=== PATIENT | female | born 1975 | race Caucasian/White ===

== ENCOUNTER 2018-07-03 13:30 | Emergency (ER) | payer BC ==
[2018-07-03 15:11] LABS: Urine Blood NEGATIVE (NEG); Urine Glucose NEGATIVE (NEG); Urine Protein NEGATIVE (NEG); Urine Specific Gravity 1.025 (1.005-1.030)
[2018-07-03 15:40] LABS: Absolute Lymphocytes (CBC) 1.2 K/uL (0.7-4.9); Absolute Monocytes 0.7 K/uL (0.1-1.3); Absolute Neutrophil 13.5 K/uL (1.8-8.0); Basophils % 0.4 % (0-1.3); Eosinophils % 0.4 % (0-4.4); Hematocrit 48.2 % (36.0-45.0); Lymphocytes % 7.9 % (15.3-44.8); MPV 9.3 fL (7.6-11.3); Monocytes % 4.8 % (3.3-12.3); RBC Red Blood Cell Count 5.63 M/uL (3.86-4.86)
[2018-07-03] MEDS ORDERED: NA CHLORIDE 0.9% 1,000 ML ONE (15:43)
[2018-07-03 15:44] LABS: Protime INR 1.03
[2018-07-03 15:55] LABS: Albumin 3.8 g/dL (3.4-5.0); Bilirubin Direct 0.2 mg/dL (0-0.2); Bilirubin Total 0.5 mg/dL (0.2-1.0); Protein, Total 8.2 g/dL (6.4-8.2)
[2018-07-03 16:10] LABS: Blood Morphology Comment NOT SEEN (NOT SEEN); Platelet Estimate ADEQ; Urine White Blood Cell Casts OK
--- NOTE | 2018-07-03 16:27 | RAD REPORT ---
EXAM DESCRIPTION: CT - Abdomen Pelvis W Contrast - 07/03/2018 4:14 pm CLINICAL HISTORY: Abdominal pain, blood in stool COMPARISON: None. TECHNIQUE: Biphasic, helical CT imaging of the abdomen and pelvis was performed following 100 ml non -ionic IV contrast. No oral contrast given. All CT scans are performed using dose optimization technique as appropriate and may include automated exposure control or mA/KV adjustment according to patient size. FINDINGS: No suspicious findings in the lung bases. The liver, spleen, and pancreas show no suspicious findings. Gallbladder and biliary tree are also wi thout suspicious finding. Gallbladder is contracted. Symmetric renal function is seen with no hydronephrosis or suspicious renal mass. No pyelonephritis o r acute parenchymal process. No bladder abnormalities. No adrenal abnormalities. Uterus is absent. Ov martha are unremarkable. No gastric dilatation or wall thickening. No dilated small bowel loop. No appendicitis findings. A di screte colon mass is not identifiable. There is a minimal amount of fluid adjacent to the ascending c olon. No focal colon process at this site. Colon is mostly decompressed from hepatic flexure to dista l rectum. No adjacent inflammatory stranding. No free air or pneumatosis. Trace amount of fluid seen in the right side of the pelvis. No mass or bulky lymphadenopathy. Very minimal umbilical hernia. N o acute component. No suspicious bony findings. IMPRESSION: No rectal wall thickening or mass identifiable. No finding to explain rectal blood. Patient has a minimal amount of free fluid adjacent to the ascending colon without an abnormality eze ntifiable on CT imaging. No other significant finding.
--- NOTE | 2018-07-03 17:33 | EDPHYS ---
Physician Documentation [facility] Name: Kimberlyn Pizarro Age: 43 yrs Sex: Female : 1975 Arrival Date: 07/03/2018 Time: 13:33 Bed 20 Private MD: Marck Gonzalez ED Physician Yong Fregoso HPI: 07/03 15:30 This 43 yrs old Female presents to ER via Ambulatory with complaints of pm1 Migraine, Bloody Stools. 15:30 The patient presents to the emergency department with rectal bleeding, a small amount, pm1 bright red blood with bowel movement, in a single episode. Onset: The symptoms/episode began/occurred today. Abdominal pain: none is appreciated. Modifying factors: The symptoms are alleviated by nothing, the symptoms are aggravated by nothing. Associated signs and symptoms: Pertinent positives: diarrhea, Pertinent negatives: chest pain, constipation, fever, shortness of breath, vomiting. Severity of symptoms: Pain is currently a 0 / 10. The patient has not experienced similar symptoms in the past. Treated for pneumonia by PCP on 06/20. Patient with migraine headache yesterday that resolved with prescription Relpax. 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 - Social history:: Smoking status: Patient/guardian denies using tobacco. - Ebola Screening: : Patient negative for fever greater than or equal to 101.5 degrees Fahrenheit, and additional compatible Ebola Virus Disease symptoms Patient denies exposure to infectious person Patient denies travel to an Ebola-affected area in the 21 days before illness onset No symptoms or risks identified at this time. ROS: 15:30 Constitutional: Negative for fever, chills, and weight loss, Eyes: Negative for injury, pm1 pain, redness, and discharge, ENT: Negative for injury, pain, and discharge, Neck: Negative for injury, pain, and swelling, Cardiovascular: Negative for chest pain, palpitations, and edema, Respiratory: Negative for shortness of breath, cough, wheezing, and pleuritic chest pain. 15:30 Back: Negative for injury and pain, : Negative for injury, bleeding, discharge, and swelling, MS/Extremity: Negative for injury and deformity, Skin: Negative for injury, rash, and discoloration, Neuro: Negative for headache, weakness, numbness, tingling, and seizure. 15:30 Abdomen/GI: Positive for diarrhea, rectal bleeding, Negative for abdominal pain, nausea, vomiting, constipation, hematemesis, black/tarry stool, rectal pain. Exam: 15:30 Constitutional: This is a well developed, well nourished patient who is awake, alert, pm1 and in no acute distress. Head/Face: Normocephalic, atraumatic. Eyes: Pupils equal round and reactive to light, extra-ocular motions intact. Lids and lashes normal. Conjunctiva and sclera are non-icteric and not injected. Cornea within normal limits. Periorbital areas with no swelling, redness, or edema. ENT: Nares patent. No nasal discharge, no septal abnormalities noted. Tympanic membranes are normal and external auditory canals are clear. Oropharynx with no redness, swelling, or masses, exudates, or evidence of obstruction, uvula midline. Mucous membranes moist. Neck: Trachea midline, no thyromegaly or masses palpated, and no cervical lymphadenopathy. Supple, full range of motion without nuchal rigidity, or vertebral point tenderness. No Meningismus. Chest/axilla: Normal chest wall appearance and motion. Nontender with no deformity. No lesions are appreciated. Cardiovascular: Regular rate and rhythm with a normal S1 and S2. No gallops, murmurs, or rubs. Normal PMI, no JVD. No pulse deficits. Respiratory: Lungs have equal breath sounds bilaterally, clear to auscultation and percussion. No rales, rhonchi or wheezes noted. No increased work of breathing, no retractions or nasal flaring. Back: No spinal tenderness. No costovertebral tenderness. Full range of motion. Skin: Warm, dry with normal turgor. Normal color with no rashes, no lesions, and no evidence of cellulitis. MS/ Extremity: Pulses equal, no cyanosis. Neurovascular intact. Full, normal range of motion. 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 15:30 Neuro: Orientation: is normal, Motor: is normal, moves all fours, Gait: is steady, at a normal pace, without difficulty. Vital Signs: 13:46 BP 126 / 91; Pulse 92; Resp 20; Temp 97.2; Pulse Ox 99% on R/A; Weight 81.65 kg; Height aj 5 ft. 7 in. (170.18 cm); 14:40 BP 114 / 76; Pulse 71; Resp 18; Pulse Ox 99% on R/A; Pain 0/10; em 16:20 BP 107 / 70; Pulse 75; Resp 18; Pulse Ox 99% on R/A; Pain 0/10; em 17:23 BP 117 / 84; Pulse 76; Resp 18; Pulse Ox 99% on R/A; Pain 0/10; em 13:46 Body Mass Index 28.19 (81.65 kg, 170.18 cm) aj MDM: 14:49 Patient medically screened. pm1 16:17 Data reviewed: vital signs. Data interpreted: Pulse oximetry: on room air is 99 %. pm1 Interpretation: normal. 17:20 ED course: Patient diagnosed clinically with pneumonia by PCP on 06/20/2018. Given IM ABX pm1 in office and prescribed antibiotics and steroids for 7-10 days. Patient cough resolved and without any symptoms. Steroid prescription likely the cause of elevated white count. 17:20 ED course: Patient without any bowel movement during ER visit. pm1 17:20 ED course: recommended colonoscopy for further evalution. pm1 17:30 Counseling: I had a detailed discussion with the patient and/or guardian regarding: the pm1 historical points, exam findings, and any diagnostic results supporting the discharge/admit diagnosis, lab results, radiology results, the need for outpatient follow up, to return to the emergency department if symptoms worsen or persist or if there are any questions or concerns that arise at home. 07/03 15:01 Order name: Urine Dipstick--Ancillary (enter results) 07/03 15:01 Order name: Urine --Ancillary (enter results) 07/03 15:09 Order name: Basic Metabolic Panel pm1 07/03 15:09 Order name: CBC with Diff pm1 07/03 15:09 Order name: Creatinine for Radiology pm1 07/03 15:09 Order name: Hepatic Function pm1 07/03 15:09 Order name: Lipase pm1 07/03 15:09 Order name: PT-INR pm1 07/03 15:09 Order name: Ptt, Activated pm1 07/03 15:09 Order name: Type And Screen pm1 07/03 15:09 Order name: Stool Culture pm07/03 15:09 Order name: Ova And Parasites pm1 07/03 15:09 Order name: CDIFF pm1 07/03 15:09 Order name: Fecal Leukocyte Stain pm1 07/03 15:09 Order name: IV Saline Lock; Complete Time: 15:42 pm1 07/03 15:09 Order name: Labs collected and sent; Complete Time: 15:42 pm1 07/03 15:10 Order name: CT Abd/Pelvis - W/Contrast: IV contrast only pm07/03 15:11 Order name: Urine --Ancillary; Complete Time: 15:12 EDID 07/03 15:11 Order name: Urine Dipstick-Ancillary; Complete Time: 15:12 EDID 07/03 15:45 Order name: CBC with Automated Diff; Complete Time: 16:15 EDID 07/03 15:45 Order name: Protime (+INR); Complete Time: 15:46 ED07/03 15:45 Order name: PTT, Activated Partial Thromb; Complete Time: 15:46 ED07/03 15:55 Order name: Basic Metabolic Panel; Complete Time: 16:15 ED07/03 15:55 Order name: Liver (Hepatic) Function; Complete Time: 16:15 ED07/03 15:55 Order name: Lipase; Complete Time: 16:15 EDMS 07/03 15:56 Order name: Creatinine (Radiology Only); Complete Time: 16:15 ED07/03 16:11 Order name: CBC Smear Scan; Complete Time: 16:15 EDMS 07/03 16:28 Order name: CT; Complete Time: 16:32 EDID Administered Medications: 15:35 Drug: NS 0.9% 1000 ml Route: IV; Rate: 1000 ml; Site: left antecubital; em 17:21 Follow up: IV Status: Completed infusion; IV Intake: 1000ml em Disposition: 07/03/18 17:32 Discharged to Home. Impression: Gastrointestinal hemorrhage, unspecified - Rectal bleeding. - Condition is Stable. - Discharge Instructions: Gastrointestinal Bleeding, Rectal Bleeding, [id number]. - Work release form, Medication Reconciliation Form, Thank You Letter, Antibiotic Education, Prescription Opioid Use form. - Follow up: Emergency Department; When: As needed; Reason: Worsening of condition. Follow up: Private Physician; When: 2 - 3 days; Reason: Recheck today's complaints, Continuance of care, Re-evaluation by your physician. - Problem is new. - Symptoms have improved. Addendum: 07/05/2018 03:38 Co-signature as Attending Physician, Yong Fregoso MD I agree with the assessment and t w4 plan of care. Signatures: Dispatcher [employer] [facility] Christina Ramos RN RN Niranjan William, LAN SPECIALIST LAN SPECIALIST em Pedro Pablo Maier, WRAPPER LAYER WRAPPER LAYER pm1 Yong Fregoso MD MD tw4 Corrections: (The following items were deleted from the chart) 07/03 17:34 17:32 07/03/2018 17:32 Discharged to Home. Impression: Gastrointestinal hemorrhage, pm1 unspecified. Condition is Stable. Forms are Medication Reconciliation Form, Thank You Letter, Antibiotic Education, Prescription Opioid Use. Follow up: Emergency Department; When: As needed; Reason: Worsening of condition. Follow up: Private Physician; When: 2 - 3 days; Reason: Recheck today's complaints, Continuance of care, Re-evaluation by your physician. Problem is new. Symptoms have improved. pm1 18:03 17:34 07/03/2018 17:32 Discharged to Home. Impression: Gastrointestinal hemorrhage, em unspecified - Rectal bleeding. Condition is Stable. Discharge Instructions: Gastrointestinal Bleeding, Rectal Bleeding, [id number]. Forms are Medication Reconciliation Form, Thank You Letter, Antibiotic Education, Prescription Opioid Use. Follow up: Emergency Department; When: As needed; Reason: Worsening of condition. Follow up: Private Physician; When: 2 - 3 days; Reason: Recheck today's complaints, Continuance of care, Re-evaluation by your physician. Problem is new. Symptoms have improved. pm1
--- NOTE | 2018-07-03 17:33 | ER ---
Nurse's Notes [facility] Name: Kimberlyn Pizarro Age: 43 yrs Sex: Female : 1975 Arrival Date: 07/03/2018 Time: 13:33 Bed 20 Private MD: Marck Gonzalez Diagnosis: Gastrointestinal hemorrhage, unspecified-Rectal bleeding Presentation: 07/03 13:43 Presenting complaint: Patient states: Migraine since yesterday, not improving with aj Relpax and excedrin. Also reports blood in stool and diarrhea today. Reports bright red blood streaking in stool. Transition of care: patient was not received from another setting of care. Onset of symptoms was July 02, 2018. Risk Assessment: Do you want to hurt yourself or someone else? Patient reports no desire to harm self or others. Initial Sepsis Screen: Does the patient meet any 2 criteria? No. Patient's initial sepsis screen is negative. Does the patient have a suspected source of infection? No. Patient's initial sepsis screen is negative. Care prior to arrival: Medication(s) given: Relpax and Excedrin Migraine. 13:43 Method Of Arrival: Ambulatory 13:43 Acuity: BIBIANA 3 aj Triage Assessment: 13:46 General: Appears in no apparent distress. uncomfortable, Behavior is calm, cooperative, aj appropriate for age. Pain: Denies pain. Neuro: Level of Consciousness is awake, alert, obeys commands, Oriented to person, place, time, situation, Appropriate for age Business Support Professional are equal bilaterally Moves all extremities. Full function Gait is steady, Speech is normal, Facial symmetry appears normal, Pupils are PERRLA, Reports headache resolved with Relpax. Cardiovascular: Capillary refill < 3 seconds in bilateral fingers Patient's skin is warm and dry. Respiratory: Airway is patent Respiratory effort is even, unlabored, Respiratory pattern is regular, symmetrical. GI: Abdomen is obese, Reports diarrhea, bloody stool. Derm: Skin is intact, is healthy with good turgor, Skin is pink, warm \T\ dry. normal. 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 - Social history:: Smoking status: Patient/guardian denies using tobacco. - Ebola Screening: : Patient negative for fever greater than or equal to 101.5 degrees Fahrenheit, and additional compatible Ebola Virus Disease symptoms Patient denies exposure to infectious person Patient denies travel to an Ebola-affected area in the 21 days before illness onset No symptoms or risks identified at this time. Screenin:41 Abuse screen: Denies threats or abuse. Nutritional screening: No deficits noted. em Tuberculosis screening: No symptoms or risk factors identified. Fall Risk None identified. Assessment: 14:40 General: Appears in no apparent distress. comfortable, Behavior is calm, cooperative, em Reports fever for. Pain: Denies pain. Pain does not radiate. Pain currently is 0 out of 10 on a pain scale. Neuro: Level of Consciousness is awake, alert, obeys commands, Oriented to person, place, time, situation. Cardiovascular: Patient's skin is warm and dry. Respiratory: Airway is patent Respiratory effort is even, unlabored, Respiratory pattern is regular, symmetrical. GI: Abdomen is flat, Abd is soft and non tender X 4 quads. Reports diarrhea, rectal bleeding, Patient currently denies nausea, vomiting. : Urine is clear. Derm: Skin is intact, is healthy with good turgor, Skin is pink, warm \T\ dry. Musculoskeletal: Range of motion: intact in all extremities. 16:08 Reassessment: Patient appears in no apparent distress at this time. Patient and/or em family updated on plan of care and expected duration. Pain level reassessed. Patient is alert, oriented x 3, equal unlabored respirations, skin warm/dry/pink. Patient denies pain at this time. 17:00 Reassessment: Patient appears in no apparent distress at this time. Patient and/or em family updated on plan of care and expected duration. Pain level reassessed. Patient is alert, oriented x 3, equal unlabored respirations, skin warm/dry/pink. Patient denies pain at this time. 18:00 Reassessment: Patient appears in no apparent distress at this time. Patient and/or em family updated on plan of care and expected duration. Pain level reassessed. Patient is alert, oriented x 3, equal unlabored respirations, skin warm/dry/pink. Patient denies pain at this time. Vital Signs: 13:46 BP 126 / 91; Pulse 92; Resp 20; Temp 97.2; Pulse Ox 99% on R/A; Weight 81.65 kg; Height aj 5 ft. 7 in. (170.18 cm); 14:40 BP 114 / 76; Pulse 71; Resp 18; Pulse Ox 99% on R/A; Pain 0/10; em 16:20 BP 107 / 70; Pulse 75; Resp 18; Pulse Ox 99% on R/A; Pain 0/10; em 17:23 BP 117 / 84; Pulse 76; Resp 18; Pulse Ox 99% on R/A; Pain 0/10; em 13:46 Body Mass Index 28.19 (81.65 kg, 170.18 cm) aj ED Course: 13:33 Patient arrived in ED. rg4 13:34 Marck Gonzalez MD is Private Physician. rg4 13:45 Triage completed. aj 13:46 Arm band placed on right wrist. Patient placed in waiting room. aj 14:35 Pedro Pablo Maier NP is PHCP. pm1 14:35 Yong Fregoso MD is Attending Physician. pm1 14:38 Niranjan Jang LVN is Primary Nurse. em 14:41 Patient has correct armband on for positive identification. Placed in gown. Bed in low em position. Call light in reach. Side rails up X2. Adult w/ patient. Pulse ox on. NIBP on. 15:20 Inserted saline lock: 22 gauge in left antecubital area, using aseptic technique. Blood jp3 collected. 15:20 Initial lab(s) drawn, by me, sent to lab. jp3 15:25 Radiology exam delayed due to lab results not completed at this time. (BUN/Creatinine). kw1 16:14 CT completed. Patient tolerated procedure well. Patient moved back from CT. ka1 18:01 No provider procedures requiring assistance completed. IV discontinued, intact, em bleeding controlled, No redness/swelling at site. Pressure dressing applied. Patient maintains SpO2 saturation greater than 95% on room air. Administered Medications: 15:35 Drug: NS 0.9% 1000 ml Route: IV; Rate: 1000 ml; Site: left antecubital; em 17:21 Follow up: IV Status: Completed infusion; IV Intake: 1000ml em Intake: 17:21 IV: 1000ml; Total: 1000ml. em Outcome: 17:32 Discharge ordered by . pm1 18:02 Discharged to home ambulatory. em 18:02 Condition: good 18:02 Discharge instructions given to patient, family, Instructed on discharge instructions, follow up and referral plans. Demonstrated understanding of instructions, follow-up care. 18:03 Patient left the ED. em Signatures: Christina Ramos, RN RN Niranjan William, OSTEOPATHIC PHYSICIAN OSTEOPATHIC PHYSICIAN em Pedro Pablo Maier, JOSE ENGINE ROOM OPERATOR pm1 Barbara Smith4 Debora Babin1 aMlia Sevilla1 Maged Savage jp3
[2018-07-03 18:22] VITALS: TEMP 97.2; O2SAT 99
[2018-07-03 18:28] VITALS: BP 117/84
== END 2018-07-03 18:03 | disposition home or self-care (01) ==
LOC: ER 13:30
DX: K92.2 Gastrointestinal hemorrhage, unspecified (principal); R19.7 Diarrhea, unspecified; I10 Essential (primary) hypertension
CPT/HCPCS: 36415; 74177; 80048; 80076; 81003; 81025; 83690; 85025; 85610; 85730; 86850; 86900; 86901; J7030; Q9967

== ENCOUNTER 2025-03-31 11:15 | Emergency (ER) | payer BC ==
--- OUTSIDE RECORDS SUMMARY | 2025-03-31 11:20 | XMS REPORT | Clinical Summary ---
Author Name Unknown Organization [facility] [place] Address [address] [place] [address] Care Team Providers Care Patent Prosecution Attorney Name Role Phone Tobin Hinojosa MD Unavailable [phone] Tiffanie Mott MD Primary Care Provider [phone] Virginia Zambrano MD Unavailable [phone] Ryan Almazan MD Unavailable [phone] Allergies No known active allergies Medications atorvastatin (LIPITOR) 40 mg tablet Take 1 tablet (40 mg) by mouth 2 (two) times a week [facility]. 023 Active Azelex 20 % cream Apply 1 application topically to affected area(s) 2 (two) times a day as needed. 024 Active eletriptan (RELPAX) 40 MG tablet Take 1 tablet (40 mg) by mouth once as needed. 023 Active estradioL (VIVELLE-DOT) 0.1 mg/[address] 1 patch (0.1 mg/day patch) on the skin 2 (two) times a week [facility]. 025 Active levocetirizine (XYZAL) 5 MG tablet Take 1 tablet (5 mg) by mouth daily. 025 Active lisdexamfetamine (VYVANSE) 40 mg capsule Take 1 capsule (40 mg) by mouth every morning. Only takes 4x/week for work 022 Active ondansetron (ZOFRAN-ODT) 4 mg disintegrating tablet Dissolve 1 tablet (4 mg) on the tongue as needed. Active prasterone, DHEA, 10 mg tab Take 1 tablet by mouth daily. Active progesterone (PROMETRIUM) 100 MG capsule Take 1 capsule (100 mg) by mouth 3 (three) times a week Wednesday, Wednesday and Wednesday. Active tretinoin (RETIN-A) 0.025% cream Apply 2 g topically to affected area(s) 2 (two) times a week [facility]. 024 Active triamterene-hydro CHLOROthiazide (MAXZIDE-25) 37.5 mg-25 mg per tablet Take 1 tablet by mouth every morning. 018 Active UNABLE TO FIND 3 (three) times a week Wednesday, Wednesday and Wednesday. Med Name: EC-RX Testosterone 0.4% transdermal cream, one application daily Active fluticasone propionate (FLONASE) 50 mcg/spray nasal spray Inhale 1 spray (50 mcg) into each nostril daily. Active HYDROcodone-aceta minophen (NORCO) 10 mg-325 mg per tabletIndications :Papillary carcinoma, NOS of thyroid gland Take 1 tablet by mouth every 6 (six) hours as needed for severe pain or moderate pain. 15 tablet 03/26/20 25 6:11 PM CDT Active methocarbamol (ROBAXIN) 750 mg tabletIndications :Papillary carcinoma, NOS of thyroid gland Take 1 tablet (750 mg) by mouth every 8 (eight) hours as needed for muscle spasms. 30 tablet Active ADULT LOW DOSE ASPIRIN ORAL Take 81 mg by mouth daily. 2024 Discontinued omega-3/dha/epa/d pa/fish/D3/K2 (OMEGA-3 2100 VIT K2-D3 ORAL) Take by mouth. 2024 Discontinued Wegovy 2.4 mg/0.75 mL pnij 025 2024 Discontinued HYDROcodone-aceta minophen (NORCO) 10 mg-325 mg per tablet 1 tablet as needed Orally every 12 hrs; Duration: 14 days 025 2024 Discontinued(S top Taking at Discharge) methocarbamol (ROBAXIN) 750 mg tablet 1 tablet Orally 3 times a day; Duration: 30 days 025 2024 Discontinued(S top Taking at Discharge) calcium carbonate-vitamin D3 500 mg - 200 units (1,250 mg calcium carbonate) tabletIndications :Papillary carcinoma, NOS of thyroid gland Take 2 tablets by mouth 2 (two) times a day with meals for 4 days. 16 tablet 025 2024 cyclobenzaprine (FLEXERIL) 5 mg tablet Take 1 tablet (5 mg) by mouth at bedtime. 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 Encounters Date Type Department Care Team Description 03/28/2025 Telephone [facility] [address] [place] [address], [facility] [place] [address] Gayla Shoemaker PA 03/28/2025 Telephone [facility] [address] [place] [address] Geovanna Isabel APRN Discharge Call 03/27/2025 Orders Only Endocrine Center [address] [place] [address], [facility] [place] [address] Kathryn Gonsales PA Papillary thyroid carcinoma (Primary Dx) 03/27/2025 Telephone [facility]ocrine Center [address] [place] [address], [facility] [place] [address] Gayla Shoemaker PA 03/26/2025 7:04 AM CDT Anesthesia Event MAIN OR [address] [place] [address] Chriss Garza MD 03/26/2025 7:00 AM CDT - 03/26/2025 9:55 AM CDT Surgery MAIN OR [address] [place] [address] Tiffanie Mott MD UNILATERAL COMPLETE THYROID LOBECTOMY 03/26/2025 5:06 AM CDT - 03/26/2025 6:33 PM CDT Hospital Encounter MAIN [id number] [address] [place] [address] Tiffanie Mott MD Papillary carcinoma, NOS of thyroid gland Discharge Disposition: Home 03/26/2025 Travel 03/22/2025 10:40 AM CDT Follow-Up [facility] [address] [place] [address] Tiffanie Mott MD Papillary carcinoma, NOS of thyroid gland (Primary Dx); Low back strain <Subsequent> 03/22/2025 9:00 AM CDT Ancillary Procedure [facility] [address] [place] [address] Gayla Shoemaker PA Papillary carcinoma, NOS of thyroid gland 03/22/2025 Travel 03/13/2025 1:01 AM CDT Anesthesia Event [facility] [address] [place] [address], [facility] [place] [address] Kay Ni, WIRE PHOTO OPERATOR NEWS 03/12/2025 1:30 PM CDT POEM Appointments [facility] [address] [place] [address], [facility] [place] [address] Gayla Shoemaker PA Papillary carcinoma, NOS of thyroid gland 03/06/2025 8:20 PM CDT Ancillary Procedure [facility] [address] [place] [address] Tiffanie Mott MD Cancer 03/06/2025 8:15 PM CDT Ancillary Procedure [facility] [address] [place] [address] Tiffanie Mott MD Cancer 03/06/2025 8:10 PM CDT Ancillary Procedure [facility] [address] [place] [address] Tiffanie Mott MD Cancer 03/06/2025 8:05 PM CDT Ancillary Procedure [facility] [address] [place] [address] Tiffanie Mott MD Cancer 03/06/2025 8:00 PM CDT Ancillary Procedure [facility] [address] [place] [address] Tiffanie Mott MD Cancer 03/06/2025 Results Follow-Up Endocrine Center [address] [place] [address] Tiffanie Mott MD Pathology Outside Interpretation 03/01/2025 1:00 PM CDT Consult Endocrine Center [address] [place] [address] Virginia Zambrano MD Papillary thyroid carcinoma (Primary Dx) 03/01/2025 Lab Requisition [facility] Bran Hua MD Galfione, Tiffanie Santana MD 03/01/2025 Travel 02/21/2025 12:15 PM CDT Office Visit Endocrine Center [address] [place] [address] Tiffanie Mott MD Papillary carcinoma, NOS of thyroid gland (Primary Dx) 02/21/2025 Prep for Surgery [facility] [address] [place], [place] [id number] Gayla Shoemaker PA Papillary carcinoma, NOS of thyroid gland (Primary Dx) 02/21/2025 Travel 02/20/2025 1:45 PM CDT Ancillary Procedure Neuro-Interventio nal Ultrasound [address] [place] [address] Tiffanie Mott MD Papillary thyroid carcinoma 02/20/2025 12:54 PM CDT - 02/20/2025 11:59 PM CDT Hospital Encounter [facility] [address] [place] [address] Tiffanie Mott MD Papillary thyroid carcinoma Discharge Disposition: Home 02/15/2025 9:00 AM CDT NPR [facility] PATIENT ACCESS Tiffanie Mott MD 02/13/2025 Orders Only Endocrine Center [address] Bldg, 6th [place] [address] Tiffanie Mott MD Papillary thyroid carcinoma (Primary Dx) after 03/31/2024 Surgical History Surgery Date Site/Laterality Comments RECONSTRUCTION BREAST WITH BREAST IMPLANT 02/12/2015 - 03/13/2015 Breast Reduction COLONOSCOPY 01/13/2024 most recent HYSTERECTOMY 08/12/2024 Ovarian Intact STOMACH SURGERY 12/26/2019 Abdominoplasty [place] TOTAL THYROID LOBECTOMY UNI W/WO ISTHMUSECTOMY 03/26/2025 Neck/Right Procedure: UNILATERAL COMPLETE THYROID LOBECTOMY; Surgeon: Tiffanie Mott MD; Location: MAIN OR; Service: SURG ONC - ENDOCRINE Medical History Medical History Date Comments Disorder of thyroid gland 02/05/2025 cancer diagnosis Abnormal uterine bleeding un related to menstrual cycle 2015 Hypertension 12/03/2016 managed with med ication Allergic rhinitis 1985 since childhoo d Migraine 1985 since childhood Endometriosis 2012 Polyp of colon 07/28/2022 redundant colon Gastric ulcer 1992 late teens Polycystic ovarian syndrome 1990 Menopause complete started HRT 11/12 01/05 Anxiety 1985 since childhood Uterine leiomyoma 08/13/2015 Hysterectomy Sinusitis 1990 since childhood Malignant neoplasm of thyroid gland 02/05/2025 Papillary Thyroid Carcinoma Postoperative nausea and vomiting Family History Medical History Relation Name Comments Kidney cancer Father Jadon Smart Renal Cell Car cinoma Melanoma Father Jadon Smart Malignant Skin cancer Father Jadon Smart Basal-Cell Carc inoma Brain cancer Maternal Aunt 1 Yesenia Gomeznhart remission Breast cancer Maternal Aunt 2 Marilynn Kimberley Breast cancer Maternal Aunt 3 Helen Cardosa Breast cancer Maternal Aunt 4 Zita Gomeznhart Thyroid cancer Maternal Aunt 5 Renetta Cogley Folli cular Carcinoma Lung cancer Maternal Grandfather Reynaldo Ocasio metasta sized Melanoma Maternal Uncle Ricardo Ocasio Malignant Cervical cancer Mother [facility]ani [place] surg ically removed Uterine cancer Mother [facility]ani [place] hyste rectomy Colon cancer Paternal Grandfather Abebe Smart passed Breast cancer Paternal Grandmother Yajaira Coffey doub le mastectomy Colon cancer Paternal Grandmother Yajaira Coffey surgi que removed Melanoma Paternal Grandmother Yajaira Augustine nant Thyroid cancer Paternal Grandmother Yajaira Coffey Rem oval of thyroid Relation Name Status Comments Father Jadon Smart Alive Maternal Aunt 1 Yesenia Echeverria Alive Maternal Aunt 2 Marilynn Chu Alive Maternal Aunt 3 Helen Li Alive Maternal Aunt 4 Zita Echeverria Alive Maternal Aunt 5 Renetta Felix Alive Maternal Grandfather Reynaldo Ocasio Alive Maternal Uncle Ricardo Ocasio Alive Mother Chani Edwards Alive Paternal Grandfather Abebe Smart Alive Paternal Grandmother Yajaira Coffey Alive Social History Tobacco Use Types Packs/Day Years Used Date Smoking Tobacco: Never Smokeless Tobacco: Never Tobacco Cessation:Counseling Given: Not Answered Alcohol Use Standard Drinks/Week Comments Yes 0 (1 standard drink = 0.6 oz pure alcohol) I don't drink weekly. I sometimes go months without. Comments No Sex and Gender Information Value Date Recorded Sex Assigned at Female 02/15/2025 7:34 AM CDT Legal Sex Female 3:58 PM CDT Gender Identity Female 02/15/2025 7:34 AM CDT Sexual Orientation Straight 02/15/2025 7: 34 AM CDT Obstetrics History Last Filed Vital Signs Vital Sign Reading Time Taken Comments Blood Pressure 121/81 03/26/2025 4:00 PM CDT Pulse 101 03/26/2025 4:00 PM CDT Temperature 36.9 °C (98.4 °F) 03/26/2025 4:00 PM CD T Respiratory Rate 18 03/26/2025 4:00 PM CDT Oxygen Saturation 96% 03/26/2025 4:00 PM CDT Inhaled Oxygen Concentration - - Weight 83.8 kg (184 lb 11.9 oz) 025 12:00 PM CDT Height 167.2 cm (5' 5.83") 03/26/2025 1 2:00 PM CDT Body Mass Index 29.98 03/26/2025 12:00 PM CDT Plan of Treatment Upcoming Encounters Date Type Department Care Team (Late st Contact Info) Description 09/28/2025 8:30 AM CDT Lab MD [facility] [address] [address] Kathryn Gonsales PA [address] [place] [address] [email or web address] 09/28/2025 9:00 AM CDT Ancillary Procedure MD [facility] [address] [facility] 2nd [place] [address] Kathryn Gonsales PA [address] [place] [address] [email or web address] 10/03/2025 4:00 PM CDT Follow-Up Endocrine Center [address] [place] [address], 6th [place] [address] Virginia Zambrano MD [address] [place] [phone] [email or web address] Health Maintenance Due Date Last Done Comments COVID-19 Vaccine (2024- 6 season) 2025 03/05/2022, 08/29/2021, 01/14/2021 Influenza Vaccine (#1) 2025 , 06/02/2021 Pneumococcal Vaccine Aged Out No long er eligible based on patient's age to complete this topic Procedures Procedure Name Priority Date/Time Associated Diagnosis Comments [place] TOTAL THYROID LOBECTOMY UNI W/WO ISTHMUSECTOMY 03/26/2025 6:44 AM CDT Papillary carcinoma, NOS of thyroid gland Special Needs SG@[id number] XR CHEST 2 VW Routine 03/22/2025 8:52 AM CDT Papillary carcinoma, NOS of thyroid gland EKG, 12-LEAD (SCHEDULED) Routine 03/22/2025 8:23 AM CDT Papillary carcinoma, NOS of thyroid gland HUMAN CHORIONIC GONADOTROPIN, QUALITATIVE Routine 03/22/2025 8:07 AM CDT Papillary carcinoma, NOS of thyroid gland BB PREOP EXP DATE Routine 03/22/2025 8:0 2 AM CDT Papillary carcinoma, NOS of thyroid gland PREOP UPDATED EXPIRATION Routine 03/22/2025 8:02 AM CDT Papillary carcinoma, NOS of thyroid gland CONFIRM ABORH TYPE Routine 03/22/2025 8: 02 AM CDT Papillary carcinoma, NOS of thyroid gland .CBC Routine 03/22/2025 8:02 AM CDT Papillary carcinoma, NOS of thyroid gland 30-DAY PRE-OP TYPE & SCREEN Routine 03/22/2025 8:02 AM CDT Papillary carcinoma, NOS of thyroid gland HEMOGLOBIN A1C Routine 03/22/2025 8:02 AM CDT Papillary carcinoma, NOS of thyroid gland APTT Routine 03/22/2025 8:02 AM CDT Papillary carcinoma, NOS of thyroid gland PROTHROMBIN TIME Routine 03/22/2025 8:02 AM CDT Papillary carcinoma, NOS of thyroid gland BASIC METABOLIC PANEL, CALCIUM TOTAL Routine 03/22/2025 8:02 AM CDT Papillary carcinoma, NOS of thyroid gland COMPLETE BLOOD COUNT W/ DIFFERENTIAL Routine 03/22/2025 8:02 AM CDT Papillary carcinoma, NOS of thyroid gland OSI US RENAL Routine 02/23/2025 7:45 PM CDT Cancer US HEAD NECK SOFT TISSUE Routine 02/20/2025 2:38 PM CDT Papillary thyroid carcinoma .CBC Routine 02/20/2025 1:10 PM CDT Papillary thyroid carcinoma PTH INTACT Routine 02/20/2025 1:10 PM CDT Papillary thyroid carcinoma PHOSPHORUS LEVEL Routine 02/20/2025 1:10 PM CDT Papillary thyroid carcinoma MAGNESIUM LEVEL Routine 02/20/2025 1:10 PM CDT Papillary thyroid carcinoma VITAMIN D 25 HYDROXY LEVEL Routine 02/20/2025 1:10 PM CDT Papillary thyroid carcinoma THYROID STIMULATING HORMONE Routine 02/20/2025 1:10 PM CDT Papillary thyroid carcinoma THYROGLOBULIN Routine 02/20/2025 1:10 PM CDT Papillary thyroid carcinoma FREE THYROXINE Routine 02/20/2025 1:10 PM CDT Papillary thyroid carcinoma COMPLETE BLOOD COUNT W/ DIFFERENTIAL Routine 02/20/2025 1:10 PM CDT Papillary thyroid carcinoma CALCIUM LEVEL Routine 02/20/2025 1:10 PM CDT Papillary thyroid carcinoma ALBUMIN LEVEL Routine 02/20/2025 1:10 PM CDT Papillary thyroid carcinoma HEPATITIS C VIRUS ANTIBODY Routine 02/20/2025 1:10 PM CDT Papillary thyroid carcinoma HEMOGLOBIN A1C Routine 02/20/2025 1:10 PM CDT Papillary thyroid carcinoma OSI CT ABDOMEN AND PELVIS Routine 02/09/2025 7:45 PM CDT Cancer OSI CT SFT TISS NECK Routine 02/08/2025 7:45 PM CDT Cancer OSI US THYROID BIOPSY Routine 02/02/2025 7:45 PM CDT Cancer PATHOLOGY OUTSIDE INTERPRETATION Routine 02/02/2025 OSI US THYROID Routine 12/21/2024 7:45 PM CDT Cancer after 03/31/2024 Results * X-ray Chest 2 Views (03/22/2025 8:52 AM CDT) Anatomical Region Laterality Modality Chest Digital Radiogra phy 03/22/2025 9:08 AM CDT Impressions 03/22/2025 9:08 AM CDT No acute cardiopulmonary disease. ACTIONABLE ITEMS/RECOMMENDATIONS*: None. *An Actionable Finding is a finding that may be unrelated to the original reason for imaging but potentially actionable, meaning further investigation may be necessary. The Actionable Findings Vigilance Unit (AFVU) assists medical providers with responding to additional radiologic findings that are unexpected and potentially actionable. Narrative 03/22/2025 9:08 AM CDT FULL RESULT: Examination: XR CHEST 2 VW on 03/22/2025 8:52 AM. Clinical History: Papillary carcinoma, NOS of thyroid gland Indication: Baseline Chest X-Ray Comparison: None Technique: Posteroanterior, lateral and dual-energy radiographs of the chest Findings: Support Apparatus: None. Lungs/Pleura/Mediastinum: The cardiomediastinal silhouette is normal in size. No consolidation. No pleural effusion. No pneumothorax. No destructive osseous lesions. Procedure Note Shea Walker MD - 03/22/2025 FULL RESULT: Examination: XR CHEST 2 VW on 03/22/2025 8:52 AM. Clinical History: Papillary carcinoma, NOS of thyroid gland Indication: Baseline Chest X-Ray Comparison: None Technique: Posteroanterior, lateral and dual-energy radiographs of thechest Findings: Support Apparatus: None. Lungs/Pleura/Mediastinum: The cardiomediastinal silhouette is normal insize. No consolidation. No pleural effusion. No pneumothorax. No destructive osseous lesions. IMPRESSION: No acute cardiopulmonary disease. ACTIONABLE ITEMS/RECOMMENDATIONS*: None. *An Actionable Finding is a finding that may be unrelated to the originalreason for imaging but potentially actionable, meaning furtherinvestigation may be necessary. The Actionable Findings Vigilance Unit(AFVU) assists medical providers with responding to additional radiologicfindings that are unexpected and potentially actionable. us Gayla MORAN IMG DIAGNOSTIC IMAGING ORDERAB LES Final Result * EKG, 12-Lead (Scheduled) (03/22/2025 8:23 AM CDT) Gayla MORAN ECG ORDERABLES Final Result [facility] IECG * U HCG (03/22/2025 8:07 AM CDT) Urine Human Chorionic Gonadotropin Qualitative Negative Negative 03/22/2025 8:16 AM CDT [facility] Urine Voided urine specimen / Unknown Non-blood Collection / Unknown 03/22/2025 8:07 AM CDT 03/22/2025 8:07 AM CDT Narrative MATTHEWS - 03/22/2025 8:16 AM CDT Very dilute urine specimens may cause false negative results. Suggest repeat in 48 hours with a first morning voided urine or request quantitative serum beta HCG test. The ICON 20 hCG Serum/Urine test employs a solid phase chromatographic immunoassay technology to selectively detect elevated levels of hCG in urine with a high degree of sensitivity. Gayla MORAN URINE ORDERABLES Final Result Performing Organization Address [facility] Co de Phone Number [facility] [address] [facility], [facility] [address] [place] [address] * BB Preop Exp Date (03/22/2025 8:02 AM CDT) PREOP EXP DATE 04/21/2025 03/22/2025 5:30 PM CDT [facility] Blood Peripheral blood specimen / Unknown Venipuncture / Unknown 03/22/2025 8:02 AM CDT 03/22/2025 8:04 AM CDT Gayla MORAN BLOOD BANK TEST ORDERABLES Fin al Result [facility] [address] [place] [address], * Preop Updated Expiration (03/22/2025 8:02 AM CDT) PREOP STATUS 03/28/2025 7:46 PM CDT [facility] PREOP EXP DATE 03/28/2025 03/28/2025 7:46 PM CDT [facility] Blood Peripheral blood specimen / Unknown Venipuncture / Unknown 03/22/2025 8:02 AM CDT 03/22/2025 8:04 AM CDT us Gayla MORAN BLOOD BANK TEST ORDERABLES Fin al Result [facility] [address] [place] [address], [place] * 30-Day Pre-Op Type and Screen (03/22/2025 8:02 AM CDT) Pathologist [facility] ABORh AB POS 03/22/2025 7:56 AM CDT [facility] ABSC Negative 03/22/2025 7:56 AM CDT [facility] BB Criteria Met Criteria met 03/22/2025 7:56 AM CDT [facility] Historical Record Check No History 03/22/2025 7:56 AM CDT [facility] Blood Peripheral blood specimen / Unknown Venipuncture / Unknown 03/22/2025 8:02 AM CDT 03/22/2025 8:04 AM CDT us Gayla MORAN BLOOD BANK TEST ORDERABLES Fin al Result [facility] [address] [place] [address], [place] * .CBC (03/22/2025 8:02 AM CDT) Only the most recent of2 resultswithin the time period is included. Pathologist [facility] White Blood Cell 7.9 4.1 - 10.5 K/uL 03/22/2025 8:11 AM [facility] Red Blood Cell 5.02 3.99 - 5.46 M/uL 03/22/2025 8:11 AM [facility] Hemoglobin 14.4 12.2 - 15.3 g/dL 03/22/2025 8:11 AM [facility] Hematocrit 42.3 36.4 - 46.8 % 03/22/2025 8:11 AM [facility] Mean Cell Volume 84 82 - 99 fL 03/22/20 8:11 AM [facility] Mean Cell Hemoglobin 28.7 26.6 - 33.2 pg 03/22/2025 8:11 AM [facility] Mean Cell Hemoglobin Concentration 34.0 31.1 - 35.2 g/dL 03/22/2025 8:11 AM [facility] RDW-SD 38.2 37.5 - 49.7 fL 03/22/2025 8:11 AM [facility] Red Cell Diameter Width 12.6 11.6 - 15.5 % 03/22/2025 8:11 AM [facility] Platelet 228 160 - 397 K/uL 03/22/2025 8:11 AM [facility] Mean Platelet Volume 10.4 9.1 - 12.6 fL 03/22/2025 8:11 AM [facility] Neutrophil % 60.5 43.2 - 72.7 % 03/22/2025 8:11 AM [facility] Lymphocyte % 28.0 16.8 - 46.2 % 03/22/2025 8:11 AM [facility] Monocyte % 7.6 5.1 - 12.5 % 03/22/2025 8:11 AM [facility] Eosinophil % 3.2 0.4 - 6.3 % 03/22/2025 8:11 AM [facility] Basophil % 0.4 0.2 - 1.4 % 03/22/2025 8:11 AM [facility] IGRE % 0.3 0.1 - 1.5 % 03/22/2025 8:11 AM [facility] Comment:The IGRE% includes M etamyelocytes, Myelocytes and Promyelocytes. Neutrophil Abs 4.77 1.95 - 7.25 K/uL 03/22/2025 8:11 AM [facility] Lymphocyte Abs 2.20 1.01 - 3.24 K/uL 03/22/2025 8:11 AM [facility] Monocyte Abs 0.60 0.24 - 0.85 K/uL 03/22/2025 8:11 AM [facility] Eosinophil Abs 0.25 0.02 - 0.50 K/uL 03/22/2025 8:11 AM [facility] Basophil Abs 0.03 0.02 - 0.09 K/uL 03/22/2025 8:11 AM [facility] IG Abs 0.02 0.01 - 0.12 K/uL 03/22/2025 8:11 AM [facility] Blood Peripheral blood specimen / Unknown Venipuncture / Unknown 03/22/2025 8:02 AM CDT 03/22/2025 8:04 AM CDT us Gayla MORAN LAB BLOOD ORDERABLES Final Res ult [facility] [address] [facility], [facility] [address] [place] [address] * (ABNORMAL) Basic Metabolic Panel- Total Calcium (03/22/2025 8:02 AM CDT) eGFR 86 >=60 mL/min/1.7 3 sq. m 03/22/2025 8:36 AM [facility] Comment: The eGFRcr is calculated with the 202 CKD-EPI creatinine equation using creatinine, patient's age, and sex for adults 18 years of age and older. Other factors, especially muscle mass, may affect accuracy and need to be considered. According to the Kidney Disease: Improving Global Outcomes (KDIGO) CKD Work Group 2012 Clinical Practice Guideline, chronic kidney disease (CKD) is defined as the abnormalities of kidney structure or function, present for more than 3 months, with implications for health. CKD should be classified by cause, GFR category, and albuminuria category. KDIGO guidelines provide the following GFR categories. Stage / Description / GFR mL/min/1.73 m2: G1* / Normal or high / >= 90 G2* / Mildly decreased / 60-89 G3a / Mildly to moderately decreased / 45-59 G3b / Moderately to severely decreased / 30-44 G4 / Severely decreased / 15-29 G5 / Kidney failure / <15 *In the absence of evidence of kidney damage, neither G1 nor G2 fulfill criteria for CKD. Calcium Level Total 9.7 8.2 - 10.2 mg/dL 03/22/2025 8:36 AM [facility] Sodium Level 136 136 - 145 mmol/L 03/22/2025 8:36 AM [facility] [facility] Comment:Reference range esta blished based on adult population Potassium Level 3.9 3.4 - 4.5 mmol/L 03/22/2025 8:36 AM [facility] Comment:Reference range esta blished based on adult population Chloride 100 98 - 107 mmol/L 03/22/2025 8:36 AM [facility] Comment:Reference range esta blished based on adult population CO2 28 22 - 29 mmol/L 03/22/2025 8:36 AM [facility] Anion Gap 8 4 - 14 mmol/L 03/22/2025 8:36 AM [facility] Creatinine 0.83 0.51 - 0.95 mg/dL 03/22/2025 8:36 AM [facility] BUN 13 6 - 23 mg/dL 03/22/2025 8:36 AM [facility] Glucose Level 66(L) 70 - 99 mg/dL 03/22/2025 8:36 AM [facility] Comment: Effective 01/08/16, the glucose reference intervals have been updated based on [employer] guidelines (Standards of Medical Care in Diabetes 2016. Diabetes Care 2016; 39: S13-S22). Fasting blood glucose: Normal: 70-99 mg/dL Impaired fasting glucose (increased risk for diabetes or pre-diabetes): 100-125 mg/dL Diabetes mellitus: >/=126 mg/dL Random blood glucose: Normal: 70-199 mg/dL Note: Random glucose >100 mg/dL is associated with increased risk for diabetes. Blood Peripheral blood specimen / Unknown Venipuncture / Unknown 03/22/2025 8:02 AM CDT 03/22/2025 8:04 AM CDT Gayla MORAN LAB BLOOD ORDERABLES Final Res ult [address], [facility] [address] [place] [address] * Confirm ABORh (03/22/2025 8:02 AM CDT) ABORh Confirm AB POS 03/21/2025 7:00 PM CDT [facility] Blood Peripheral blood specimen / Unknown Venipuncture / Unknown 03/22/2025 8:02 AM CDT 03/22/2025 8:02 AM CDT Gayla MORAN BLOOD BANK TEST ORDERABLES Fin al Result [facility] [phone] [place] [address], * aPTT (03/22/2025 8:02 AM CDT) Activated PTT 29.2 24.8 - 35.6 second(s) 03/22/2025 8:34 AM CDT [facility] Blood Peripheral blood specimen / Unknown Venipuncture / Unknown 03/22/2025 8:02 AM CDT 03/22/2025 8:04 AM CDT Gayla MORAN LAB BLOOD ORDERABLES Final Res ult [address], [facility] [address] [place] [address] * Prothrombin Time with INR (03/22/2025 8:02 AM CDT) Prothrombin Time 13.3 12.2 - 14.4 second(s) 03/22/2025 8:34 AM CDT [facility] International Normalization Ratio 0.98 0.91 - 1.10 03/22/2025 8:34 AM CDT [facility] Blood Peripheral blood specimen / Unknown Venipuncture / Unknown 03/22/2025 8:02 AM CDT 03/22/2025 8:04 AM CDT us Gayla MORAN LAB BLOOD ORDERABLES Final Res ult Performing Organization Address [facility]/ZIP Co de Phone Number [place] [phone] [place] [address] * Hemoglobin A1c (03/22/2025 8:02 AM CDT) Only the most recent of2 resultswithin the time period is included. Hemoglobin A1c 5.0 4.3 - 5.6 % 8:24 AM CDT [facility] Blood Peripheral blood specimen / Unknown Venipuncture / Unknown 03/22/2025 8:02 AM CDT 03/22/2025 8:04 AM CDT Narrative [facility] - 03/22/2025 8:24 AM CDT HbA1c values >=6.5% are diagnostic of diabetes mellitus. Diagnosis should be confirmed by repeat testing. Therapeutic Action suggested: >8.0% HbA1c; Goal of therapy: <7.0% HbA1c us Gayla MORAN LAB BLOOD ORDERABLES Final Res ult Performing Organization Address City/[facility]/ZIP Co de Phone Number [place] [phone] [place] [address] * OSI US Renal (02/23/2025 7:45 PM CDT) Narrative Systemgenerated, Documentation - 03/06/2025 7:45 PM CDT Study acquired at another institution. For comparison only. No MD [facility] originated interpretation requested or available. us Tiffanie Mott MD IMG OUTSIDE IMAGE ORDERABLES F inal Result * US HEAD NECK SOFT TISSUE (02/20/2025 2:38 PM CDT) Anatomical Region Laterality Modality Head, Neck Ultrasound 02/20/2025 2:21 PM CDT Impressions 02/20/2025 2:49 PM CDT 1. Hypoechoic solid nodule with echogenic foci within the isthmus (previously biopsied as papillary thyroid carcinoma) with probable extracapsular spread 2. Ovoid lymph node along the left lateral neck is likely benign. No right cervical lymphadenopathy. ACTIONABLE ITEMS/RECOMMENDATIONS*: None. *An Actionable Finding is a finding that may be unrelated to the original reason for imaging but potentially actionable, meaning further investigation may be necessary. The Actionable Findings Vigilance Unit (AFVU) assists medical providers with responding to additional radiologic findings that are unexpected and potentially actionable. Narrative 02/20/2025 2:49 PM CDT FULL RESULT: Examination: US HEAD NECK SOFT TISSUE on 02/20/2025 2:38 PM. CLINICAL HISTORY: Papillary thyroid carcinoma INDICATION: Thyroid Cancer Outside biopsy suspicous for Papillary Thyroid Carcinoma. COMPARISON: None. PROCEDURE COMMENTS: Real-time ultrasound examination of the neck soft tissues was performed. FINDINGS: Right Thyroid Lobe: 2.1 x 5.3 x 1.4 cm Background parenchymal echogenicity: Normal Nodule 1: Mixed solid cystic nodule in the right posterior mid thyroid measuring 0.7 x 0.6 x 1.2 cm (previously biopsied as benign) ACR TI-RADS: 3 Right central compartment: No suspicious appearing lymph nodes. Isthmus: 0.4 cm thick Nodule 2: Hypoechoic solid nodule with echogenic foci within the isthmus, measuring 1.6 x 0.8 x 0.8 cm (previously biopsied as papillary thyroid carcinoma) with probable extracapsular spread Suprasternal or Delphian lymph nodes: No suspicious appearing lymph nodes. Benign morphology lymph node with echogenic hilum in the suprasternal region measuring 1 x 0.6 x 0.5 cm Left Thyroid Lobe: 4.7 x 1.2 x 1.9 cm Background parenchymal echogenicity: Normal Subcentimeter cystic nodules within the left thyroid. Left central compartment: No suspicious appearing lymph nodes. Lymph nodes: Right lateral compartment: No suspicious appearing lymph nodes. Left lateral compartment: No suspicious appearing lymph nodes. Ovoid lymph node along the left inferior neck, measuring 0.4 x 1.9 x 0.4 cm, likely benign. Procedure Note Mark Aleman MD - 02/20/2025 FULL RESULT: Examination: US HEAD NECK SOFT TISSUE on 02/20/2025 2:38 PM. CLINICAL HISTORY: Papillary thyroid carcinoma INDICATION: Thyroid Cancer Outside biopsy suspicous for Papillary Thyroid Carcinoma. COMPARISON: None. PROCEDURE COMMENTS: Real-time ultrasound examination of the neck softtissues was performed. FINDINGS: Right Thyroid Lobe: 2.1 x 5.3 x 1.4 cm Background parenchymal echogenicity: Normal Nodule 1: Mixed solid cystic nodule in the right posterior mid thyroidmeasuring 0.7 x 0.6 x 1.2 cm (previously biopsied as benign) ACR TI-RADS: 3 Right central compartment: No suspicious appearing lymph nodes. Isthmus: 0.4 cm thick Nodule 2: Hypoechoic solid nodule with echogenic foci within the isthmus,measuring 1.6 x 0.8 x 0.8 cm (previously biopsied as papillary thyroidcarcinoma) with probable extracapsular spread Suprasternal or Delphian lymph nodes: No suspicious appearing lymph nodes.Benign morphology lymph node with echogenic hilum in the suprasternalregion measuring 1 x 0.6 x 0.5 cm Left Thyroid Lobe: 4.7 x 1.2 x 1.9 cm Background parenchymal echogenicity: Normal Subcentimeter cystic nodules within the left thyroid. Left central compartment: No suspicious appearing lymph nodes. Lymph nodes: Right lateral compartment: No suspicious appearing lymph nodes. Left lateral compartment: No suspicious appearing lymph nodes. Ovoid lymphnode along the left inferior neck, measuring 0.4 x 1.9 x 0.4 cm, likelybenign. IMPRESSION: 1. Hypoechoic solid nodule with echogenic foci within the isthmus(previously biopsied as papillary thyroid carcinoma) with probableextracapsular spread 2. Ovoid lymph node along the left lateral neck is likely benign. No rightcervical lymphadenopathy. ACTIONABLE ITEMS/RECOMMENDATIONS*: None. *An Actionable Finding is a finding that may be unrelated to the originalreason for imaging but potentially actionable, meaning furtherinvestigation may be necessary. The Actionable Findings Vigilance Unit(AFVU) assists medical providers with responding to additional radiologicfindings that are unexpected and potentially actionable. us Tiffanie Mott MD [facility] US ORDERABLES Final Result * PTH Intact (02/20/2025 1:10 PM CDT) [facility] Parathyroid Hormone Intact 58.0 17.9 - 58.6 pg/mL 02/20/2025 1:55 PM CDT [facility] Comment:Reference range esta blished based on adult population. Blood Peripheral blood specimen / Unknown Venipuncture / Unknown 02/20/2025 1:10 PM CDT 02/20/2025 1:14 PM CDT Tiffanie Mott MD LAB BLOOD ORDERABLES Final Res ult [facility] [address] [facility] [place] [address], * Hepatitis C Virus Antibody (02/20/2025 1:10 PM CDT) [facility] HCVAb. Non Reactive Non Reactive 02/20/2025 2:45 PM CDT [facility] Blood Peripheral blood specimen / Unknown Venipuncture / Unknown 02/20/2025 1:10 PM CDT 02/20/2025 1:14 PM CDT Narrative [facility] - 02/20/2025 2:45 PM CDT Antibody detection in the immunocompromised and immunosuppressed population may be delayed or absent entirely. Therefore serial testing, correlation with other clinical findings, and supplemental testing (if available) should be taken into consideration when interpreting the results. Tiffanie Mott MD LAB BLOOD ORDERABLES Final Res ult [facility] [address] [place] [address] * Vitamin D 25OH (02/20/2025 1:10 PM CDT) [facility] Vitamin D 25 OH 42 30 - 100 ng/mL 02/20/2025 2:51 PM CDT [facility] Blood Peripheral blood specimen / Unknown Venipuncture / Unknown 02/20/2025 1:10 PM CDT 02/20/2025 1:14 PM CDT Narrative [facility] - 02/20/2025 2:51 PM CDT Reference Range: Deficiency: <=20 ng/mL Insufficiency: 21-29 ng/mL Sufficiency: 30-100 ng/mL Potential toxicity: >100 ng/mL Tiffanie Mott MD LAB BLOOD ORDERABLES Final Res ult Performing Organization Address City/[facility] Co de Phone Number [place] [phone] [place] [address] * Thyroglobulin (02/20/2025 1:10 PM CDT) Thyroglobulin 12.60 1.59 - 50.03 ng/mL 02/20/2025 3:00 PM CDT [facility] Comment: Caution is required for result interpretation in the following conditions: For athyreotic patients, please note that the reference range is <0.1 ng/mL. When thyroglobulin results exceed 4500.00 ng/mL, some thyroglobulin samples may not dilute linearly due to varying antigen specificity, affinity, and avidity of capture and conjugate antibodies in their epitope reactions. If Thyroglobulin Antibody >4 IU/mL on Ipetro Glenna, thyroglobulin results can be falsely low due to the presence of thyroglobulin antibodies. Testing on an alternative platform is available. Please contact pathologists or the core lab at [phone] for assistance. Results obtained with different assay methods cannot be used interchangeably. Thyroglobulin Antibody 1.7 <=3.9 IU/ml 02/20/2025 3:00 PM CDT [facility] Comment:Due to varying antig en specificity, affinity and avidity of capture and conjugate antibodies in their epitope reactions, some thyroglobulin antibody samples may not dilute linearly when results exceed 1650 IU/mL. Blood Peripheral blood specimen / Unknown Venipuncture / Unknown 02/20/2025 1:10 PM CDT 02/20/2025 1:14 PM CDT Tiffanie Mott MD LAB BLOOD ORDERABLES Final Res ult Performing Organization Address City/[facility]/ZIP Co de Phone Number [facility] [address] [place] [address] * TSH (02/20/2025 1:10 PM CDT) Thyroid Stimulating Hormone 1.02 0.27 - 4.20 mcIU/mL 02/20/2025 2:05 PM CDT [facility] Blood Peripheral blood specimen / Unknown Venipuncture / Unknown 02/20/2025 1:10 PM CDT 02/20/2025 1:14 PM CDT Tiffanie Mott MD LAB BLOOD ORDERABLES Final Res ult [address] [place] [address], [place] * Free T4 (02/20/2025 1:10 PM CDT) T4 (Thyroxine) Free 1.13 0.92 - 1.68 ng/dL 02/20/2025 2:05 PM CDT [facility] Blood Peripheral blood specimen / Unknown Venipuncture / Unknown 02/20/2025 1:10 PM CDT 02/20/2025 1:14 PM CDT Tiffanie Mott MD LAB BLOOD ORDERABLES Final Res ult [address] [place] [address], [place] * Phosphorus Level (02/20/2025 1:10 PM CDT) Phosphorus Level 3.9 2.5 - 4.5 mg/dL 02/20/2025 1:49 PM CDT [facility] Blood Peripheral blood specimen / Unknown Venipuncture / Unknown 02/20/2025 1:10 PM CDT 02/20/2025 1:14 PM CDT Tiffanie Mott MD LAB BLOOD ORDERABLES Final Res ult [address] [place] [address], [place] * Magnesium Level (02/20/2025 1:10 PM CDT) Magnesium Level 2.2 1.6 - 2.6 mg/dL 02/20/2025 1:49 PM CDT [facility] Blood Peripheral blood specimen / Unknown Venipuncture / Unknown 02/20/2025 1:10 PM CDT 02/20/2025 1:14 PM CDT Tiffanie Mott MD LAB BLOOD ORDERABLES Final Res ult [address] [place] [address], * Calcium Level (02/20/2025 1:10 PM CDT) Calcium Level Total 9.5 8.2 - 10.2 mg/dL 02/20/2025 1:49 PM CDT [facility] Blood Peripheral blood specimen / Unknown Venipuncture / Unknown 02/20/2025 1:10 PM CDT 02/20/2025 1:14 PM CDT Tiffanie Mott MD LAB BLOOD ORDERABLES Final Res ult [address] [place] [address], * Albumin Level (02/20/2025 1:10 PM CDT) Albumin Level 4.3 3.5 - 5.2 gm/dL 02/20/2025 1:49 PM CDT [facility] Blood Peripheral blood specimen / Unknown Venipuncture / Unknown 02/20/2025 1:10 PM CDT 02/20/2025 1:14 PM CDT us Tiffanie Mott MD LAB BLOOD ORDERABLES Final Res ult [address] [place] [address], [place] * OSI CT Abdomen and Pelvis (02/09/2025 7:45 PM CDT) Narrative Systemgenerated, Documentation - 03/06/2025 7:46 PM CDT Study acquired at another institution. For comparison only. No MD Mck[facility] originated interpretation requested or available. Tiffanie Mott MD IMG OUTSIDE IMAGE ORDERABLES F inal Result * OSI CT Sft Tiss Neck (02/08/2025 7:45 PM CDT) Narrative Systemgenerated, Documentation - 03/06/2025 7:45 PM CDT Study acquired at another institution. For comparison only. No MD Mck[facility] originated interpretation requested or available. us Tiffanie Mott MD IMG OUTSIDE IMAGE ORDERABLES F inal Result * OSI US Thyroid Biopsy (02/02/2025 7:45 PM CDT) Narrative Systemgenerated, Documentation - 03/06/2025 7:45 PM CDT Study acquired at another institution. For comparison only. No MD Mckin[facility] originated interpretation requested or available. us Tiffanie Mott MD IMG OUTSIDE IMAGE ORDERABLES F inal Result * Pathology Outside Interpretation (02/02/2025) Materials Received Accession#, Stained, Block, Unstained Collected Received A. [id number], 7 SS, 0 BLOCKS, 0 USS B. 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 These tests have not been specifically cleared or approved by the U.S. Food and Drug Administration. If applicable, controls were reviewed and showed appropriate reactivity." 03/02/2025 10:37 AM CDT [facility] Tissue 02/02/2025 03/01/2025 3:2 7 PM CDT Tissue specimen (specimen) 02/02/2025 03/01/2025 3:27 PM CDT us Tiffanie Anderson MD LAB PATHOLOGY ORDERABLES Final Result [facility] [address] [place] [address], [place] * OSI US Thyroid (12/21/2024 7:45 PM CDT) Narrative Systemgenerated, Documentation - 03/06/2025 7:45 PM CDT Study acquired at another institution. For comparison only. No [facility] originated interpretation requested or available. us Tiffanie Mott MD IMG OUTSIDE IMAGE ORDERABLES F inal Result after 03/31/2024 Insurance [facility] PPO [place] [address] [address] PPO POS Advance Directives * Full Code (Latest Code Status on File) Date Activated Date Inactivated Comments 03/26/2025 5:13 AM Update based on Advanced Directive Documentation * Full Code Date Activated Date Inactivated Comments 02/13/2025 5:45 PM 03/26/2025 5:06 AM Update based on Advanced Directive Documentation Care Teams Patent Prosecution Attorney Relationship Specialty Start [place] [address] [place] [phone] PCP - External Primary Care Provider Endocrinology 02/13/25 Tiffanie Mott MD [address] [place] [address] [email or web address] - General Surgical Oncology 02/13/25 Ryan Almazan MD [address] [place] [phone] ashley PCP - External Follow Up A Family Practice 03/14/25 Virginia Zambrano MD [address] [place] [address] [email or web address] Physician Endocrinology 03/01/25
[2025-03-31] MEDS ORDERED: DIAZEPAM 10 MG/2 ML INJ SYRINGE ONE (12:01)
[2025-03-31] MEDS ORDERED: KETOROLAC 30 MG/ML INJ ONE (12:02)
[2025-03-31] MEDS ORDERED: ONDANSETRON 4 MG/2 ML VIAL ONE ×2 (12:02→15:01)
[2025-03-31] MEDS ORDERED: NA CHLORIDE 0.9% 1,000 ML ONE (12:02)
[2025-03-31] MEDS ORDERED: MORPHINE 4 MG/ML SYR ONE ×2 (12:02→14:44)
[2025-03-31 12:24] LABS: Absolute Lymphocytes (CBC) 1.6 K/uL (0.7-4.9); Hematocrit 47.9 % (36.0-45.0); Hemoglobin 15.7 g/dL (12.0-15.0); MCH 27.2 pg (27.0-35.0); MCHC 32.8 g/dL (32.0-36.0); MCV 83.0 fL (80-100); MPV 9.2 fL (7.6-11.3); Nucleated RBC Absolute Count 0.0 (0-0); Nucleated Red Blood Cells % 0.2 % (0-0); RBC Red Blood Cell Count 5.77 M/uL (3.86-4.86); White Blood Count 7.20 thou/uL (4.3-10.9)
[2025-03-31 12:42] LABS: ALT/SGPT 24.0 U/L (13-56); AST/SGOT 14.0 U/L (15-37); Albumin 3.5 g/dL (3.4-5.0); Albumin/Globulin Ratio 0.8 (1.1-1.8); Alkaline Phosphatase 82.0 U/L (45-117); Anion Gap 10.5 mEq/L (5.0-15.0); BUN Blood Urea Nitrogen 17.0 mg/dL (7-18); Globulin 4.3 g/dL (2.3-3.5); Glucose Level 89.0 mg/dL (74-106); Lipase 53.0 U/L (13-75); Potassium 3.5 mEq/L (3.5-5.1)
[2025-03-31 14:02] LABS: Urine Microscopic Reflex YN NO UMIC
--- NOTE | 2025-03-31 14:11 | RAD REPORT ---
EXAMINATION: CT ABDOMEN AND PELVIS WITH CONTRAST CLINICAL INDICATION: Abdominal pain TECHNIQUE: CT abdomen and pelvis was performed, after the administration of 100 cc Isovue-300.. Sagit halle and coronal reconstructions were obtained. One or more of the following dose reduction techniques were used: Automated exposure control, adjustment of the mA and kV according to patient si ze, and iterative reconstruction. Unless otherwise specified, incidental findings do not require dedicated imaging follow-up. [id number]. Oral contrast was not given which limits evaluation of bowel and appendix. 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 No follow-up imaging recommen ded No evidence of diverticulitis. Fluid within large and small bowel Normal appendix. Hysterectomy. No adnexal mass. Postsurgical changes of an abdominoplasty. Small umbilical hernia. : IMPRESSION: Fluid within large and small bowel may indicate an enteritis
--- NOTE | 2025-03-31 14:44 | EDPHYS ---
Physician Documentation [facility] Name: Kimberlyn Pizarro Age: 49 yrs Sex: Female : 1975 Arrival Date: 03/31/2025 Time: 11:15 Bed 4 Private MD: Angelo Christie HPI: 03/31 12:14 This 49 yrs old Female presents to ER via Ambulatory with complaints of Low dr5 Back Pain. 12:14 The patient presents with pain that is chronic, with no known mechanism of injury. dr5 Patient is a 49-year-old female with history of ADD, hypertension, migraines, thyroid cancer coming in with right lower back pain that radiates down right leg. Patient states has been going on for 2 weeks after she twisted her back when moving her kayak. Patient reports has been taking methocarbamol and [place] 10 that was given to her after thyroid surgery that was completed last Wednesday. Patient reports she coughed this morning which intensified her back pain to unbearable. Patient denies numbness tingling to bilateral lower legs, perirectal numbness, bowel or bladder incontinence, or recent falls.. 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 - Infectious Disease History:: Denies. - Social history:: Smoking status: Patient denies any tobacco usage or history of. ROS: 12:14 Constitutional: as per hpi dr5 Exam: 12:14 Constitutional: This is a well developed, well nourished patient who is awake, alert, dr5 and in no acute distress. Head/Face: Normocephalic, atraumatic. Eyes: Pupils equal round and reactive to light, extra-ocular motions intact. Lids and lashes normal. Conjunctiva and sclera are non-icteric and not injected. Cornea within normal limits. Periorbital areas with no swelling, redness, or edema. Neck: Trachea midline, no thyromegaly or masses palpated, and no cervical lymphadenopathy. Supple, full range of motion without nuchal rigidity, or vertebral point tenderness. No Meningismus. Chest/axilla: Normal chest wall appearance and motion. Nontender with no deformity. No lesions are appreciated. Cardiovascular: Regular rate and rhythm with a normal S1 and S2. Normal PMI, no JVD. No pulse deficits. Respiratory: Lungs have equal breath sounds bilaterally, clear to auscultation. No rales, rhonchi or wheezes noted. No increased work of breathing, no retractions or nasal flaring. Abdomen/GI: Soft, non-tender, non-distended Back: Moderated tenderness to right lower back. Full range of motion. Patient is able to ambulate with steady gait and lay flat with pain under control. Skin: Warm, dry with normal turgor. Normal color with no rashes, no lesions, and no evidence of cellulitis. MS/ Extremity: Pulses equal, no cyanosis. Neurovascular intact. Full, normal range of motion. Neuro: Awake and alert, GCS 15, oriented to person, place, time, and situation. Cranial nerves II-XII grossly intact. Motor strength 5/5 in all extremities. Sensory grossly intact. Cerebellar exam normal. Normal gait. Vital Signs: 11:35 BP 152 / 90; Pulse 115; Resp 20; Temp 98.3; Pulse Ox 98% ; Weight 83.91 kg; Height 5 me1 ft. 7 in. ; Pain 10/10; 13:31 Pulse 95; Resp 19; Pulse Ox 100% on R/A; ap3 13:32 BP 154 / 98; ap3 14:38 BP 115 / 86; Pulse 95; Resp 20; Pulse Ox 100% on R/A; kb4 11:35 Body Mass Index 28.97 (83.91 kg, 170.18 cm) me1 11:35 Pain Scale: Adult me1 MDM: 11:16 Medical Screening Exam initiated dr5 15:47 Differential diagnosis: arthritis, strain, fracture, sciatica, contusion, UTI. Data dr5 reviewed: vital signs, nurses notes, lab test result(s), amylase and lipase, CBC, white blood cell count, hemoglobin, hematocrit, platelets, electrolytes, sodium, potassium, chloride, serum bicarbonate, BUN, creatinine, serum glucose, radiologic studies, CT scan. 15:59 Consideration of Admission/Observation Escalation of care including dr5 admission/observation considered. Escalation considered patient found to have cord compression on CT scan. I considered the following discharge prescriptions or medication management in the emergency department I discussed and recommended Over The Counter medications, Medications were administered in the Emergency Department. See MAR. Independent interpretation of the following test(s) in the Emergency Department. Care significantly affected by the following chronic conditions: Hypertension, Cancer. Care significantly affected by the following Social Determinants of Health: Poor access to healthcare and/or lack of insurance, Poor access to transportation, Problems related to employment. Counseling: I had a detailed discussion with the patient and/or guardian regarding the historical points, exam findings, and any diagnostic results supporting the discharge/admit diagnosis, the presence of at least one elevated blood pressure reading (>120/80) during this emergency department visit, lab results, radiology results, the need for outpatient follow up, for definitive care, a family practitioner, to return to the emergency department if symptoms worsen or persist or if there are any questions or concerns that arise at home. Response to treatment: the patient's symptoms have markedly improved after treatment. Special discussion: I discussed with the patient/guardian in detail that at this point there is no indication for admission to the hospital. It is understood, however, that if the symptoms persist or worsen the patient needs to return immediately for re-evaluation. Based on the history and exam findings, there is no indication for further emergent testing or inpatient evaluation. I discussed with the patient/guardian the need to see the primary care provider for further evaluation of the symptoms. ED course: Recommend patient follow primary care doctor as well as orthopedics for sciatic nerve pain management. Will give patient pain medication to help at home. All question answered. Strict and precaution. Patient has steady gait on discharge.. 03/31 11:36 Order name: CBC with Diff; Complete Time: 12:36 dr5 03/31 11:36 Order name: CMP; Complete Time: 12:48 dr5 03/31 11:36 Order name: Lipase; Complete Time: 12:48 dr5 03/31 11:36 Order name: Test, Urine; Complete Time: 14:34 dr5 03/31 11:36 Order name: UA Rfx Chalino Cult if indicated; Complete Time: 14:34 dr5 03/31 11:36 Order name: CT Abd/Pelvis - IV Contrast Only; Complete Time: 14:34 dr5 03/31 11:36 Order name: IV Saline Lock; Complete Time: 12:28 dr5 03/31 11:36 Order name: Labs collected and sent; Complete Time: 12:16 dr5 Administered Medications: 12:25 Drug: Diazepam IVP 5 mg IVP once Route: IVP; Site: left antecubital; kb4 13:32 Follow up: Response: No adverse reaction; Pain is decreased ap3 12:26 Drug: Ondansetron IVP 4 mg IVP once; over 2 minutes Route: IVP; Site: left antecubital; kb4 13:32 Follow up: Response: No adverse reaction; Pain is decreased ap3 12:26 Drug: morphine IVP or IV 4 mg IVP once over 4 mins Route: IVP; Infused Over: 4 mins; kb4 Site: left antecubital; 13:33 Follow up: Response: No adverse reaction; Pain is decreased; RASS: Alert and Calm (0) ap3 12:26 Drug: NS 0.9% IV 1000 ml IV at 1 bolus Per protocol; to be given as a bolus over 60 kb4 minutes Route: IV; Rate: 1 bolus; Site: left antecubital; 15:14 Follow up: Response: No adverse reaction; IV Status: Completed infusion kb4 12:26 Drug: Ketorolac IVP 15 mg IVP once Route: IVP; Site: left antecubital; kb4 13:32 Follow up: Response: No adverse reaction; Pain is decreased ap3 15:12 Drug: morphine IVP or IV 4 mg IVP once over 4 mins Route: IVP; Infused Over: 4 mins; kb4 Site: left antecubital; 15:14 Follow up: Response: Medication administered at discharge. kb4 15:12 Drug: Dexamethasone IVP 10 mg IVP once; (not to exceed 40 mg) Route: IVP; Site: left kb4 antecubital; 15:12 Follow up: Response: Medication administered at discharge. kb4 15:12 Drug: Ondansetron IVP 4 mg IVP once; over 2 minutes Route: IVP; Site: left antecubital; kb4 15:12 Follow up: Response: Medication administered at discharge. kb4 Disposition Summary: 03/31/25 14:44 Discharge Ordered Notes: Location: Home dr5 Condition: Stable dr5 Diagnosis - Low back pain dr5 - Other specified noninfective gastroenteritis and colitis dr5 Followup: dr5 - With: Emergency Department - When: As needed - Reason: Worsening of condition Followup: dr5 - With: Private Physician - When: 1 - 2 days - Reason: Recheck today's complaints, Continuance of care, Re-evaluation by your physician Discharge Instructions: - Discharge Summary Sheet dr5 - Acute Back Pain, Adult dr5 Forms: - Medication Reconciliation Form dr5 - Patient Portal Instructions dr5 - Leadership Thank You Letter dr5 Prescriptions: - gabapentin 800 mg Oral tablet - take 1 tablet ORAL route 3 times per day; 60 tablet; Refills: 0, Product dr5 Selection Permitted - Ibuprofen 800 mg Oral Tablet - take 1 tablet ORAL route every 12 hours As needed take with food; 20 tablet; dr5 Refills: 0, Product Selection Permitted - Zofran 4 mg Oral Tablet - take 1 tablet ORAL route every 12 hours As needed; 20 tablet; Refills: 0, dr5 Product Selection Permitted - Cyclobenzaprine 10 mg Oral Tablet - take 1 tablet ORAL route every 8 hours As needed; 30 tablet; Refills: 0, dr5 Product Selection Permitted - Medrol (Toro) 4 mg Oral Tablets, Dose Pack - take 1 tablet ORAL route as directed - follow package instructions; 1 packet; dr5 Refills: 0, Product Selection Permitted Signatures: Dispatcher [employer] EDJane Putnam RN RN me1 Wellington Hadley, TECHNOLOGY OFFICER-C TECHNOLOGY OFFICER-Cdr5 Citlali Villanueva RN RN kb4 Christina Ybarra RN ap3 Corrections: (The following items were deleted from the chart) 16:06 15:47 Data reviewed: vital signs, nurses notes, lab test result(s), CBC, white blood dr5 cell count, hemoglobin, hematocrit, platelets, electrolytes, sodium, potassium, chloride, serum bicarbonate, BUN, creatinine, serum glucose, dr5
--- NOTE | 2025-03-31 14:44 | ER ---
Nurse's Notes [facility] Name: Kimberlyn Pizarro Age: 49 yrs Sex: Female : 1975 Arrival Date: 03/31/2025 Time: 11:15 Bed 4 Private MD: Diagnosis: Low back pain;Other specified noninfective gastroenteritis and colitis Presentation: 03/31 11:35 Chief complaint: Patient states: hurt her back 2 weeks ago moving a kayak. Pain is me1 posterior and lateral right side from ribs down below her buttocks. Reports pain was getting better until she coughed this morning and her pain is severe now. Took hydrocodone and robaxin at 08:30 with no relief. Tearful. Cannot sit, states she must stand or lie flat or pain is worse. Coronavirus screen: Vaccine status: Patient reports receiving the 2nd dose of the covid vaccine. Ebola Screen: No symptoms or risks identified at this time. Initial Sepsis Screen: Does the patient meet any 2 criteria? HR > 90 bpm. Does the patient have a suspected source of infection? No. Patient's initial sepsis screen is negative. Risk Assessment: Do you want to hurt yourself or someone else? Patient reports no desire to harm self or others. Onset of symptoms is unknown. 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 - Infectious Disease History:: Denies. - Social history:: Smoking status: Patient denies any tobacco usage or history of. Screenin:13 Abuse screen: Denies threats or abuse. Nutritional screening: No deficits noted. ap3 Tuberculosis screening: No symptoms or risk factors identified. 13:31 [facility] ED Fall Risk Assessment (Adult) History of falling in the last 3 months, ap3 including since admission No falls in past 3 months (0 pts) Confusion or Disorientation No (0 pts) Intoxicated or Sedated No (0 pts) Impaired Gait Yes (1 pt) Mobility Assist Device Used No (0 pt) Altered Elimination No (0 pt) Score/Fall Risk Level 0 - 2 = Low Risk Oriented to surroundings, Maintained a safe environment, Educated pt \\T\\ family on fall prevention, incl call for assistance when getting out of bed, Assessed \\T\\ reinforced patient's understanding of fall precautions, Hourly rounding (assess needs \\T\\ fall precautionary measures) done, Used ambulatory aids as needed (educated on \\T\\ assisted with). Assessment: 12:12 General: Appears uncomfortable, Behavior is calm, cooperative, appropriate for age. ap3 Pain: Complains of pain in back. Neuro: Level of Consciousness is awake, alert, obeys commands, Oriented to person, place, time, situation, Appropriate for age. Neuro: Gait is steady. Cardiovascular: Patient's skin is warm and dry. Respiratory: Airway is patent Respiratory effort is even, unlabored, Respiratory pattern is regular, symmetrical. 12:28 Reassessment: Patient and/or family updated on plan of care and expected duration. Pain kb4 level reassessed. Patient is alert, oriented x 3, equal unlabored respirations, skin warm/dry/pink. 13:30 Reassessment: Patient states feeling better. Patient states symptoms have improved. ap3 14:38 Reassessment: Patient and/or family updated on plan of care and expected duration. Pain kb4 level reassessed. Patient is alert, oriented x 3, equal unlabored respirations, skin warm/dry/pink. 14:55 Reassessment: Patient and/or family updated on plan of care and expected duration. Pain kb4 level reassessed. Patient is alert, oriented x 3, equal unlabored respirations, skin warm/dry/pink. pain returned from before, pt stated "meds wore off". Vital Signs: 11:35 BP 152 / 90; Pulse 115; Resp 20; Temp 98.3; Pulse Ox 98% ; Weight 83.91 kg; Height 5 me1 ft. 7 in. ; Pain 10/10; 13:31 Pulse 95; Resp 19; Pulse Ox 100% on R/A; ap3 13:32 BP 154 / 98; ap3 14:38 BP 115 / 86; Pulse 95; Resp 20; Pulse Ox 100% on R/A; kb4 11:35 Body Mass Index 28.97 (83.91 kg, 170.18 cm) me1 11:35 Pain Scale: Adult me1 ED Course: 11:16 Patient arrived in ED. im 11:16 Wellington Hadley, TAX ACCOUNTING MANAGER-C is PHCP. dr5 11:16 Angelo Mckinley MD is Attending Physician. dr5 11:39 Triage completed. me1 11:39 Arm band placed on Patient placed in an exam room. me1 11:53 Citlali Villanueva, RN is Primary Nurse. kb4 12:16 Initial lab(s) drawn, by me, sent to lab. pm7 13:11 CT Abd/Pelvis - IV Contrast Only In Process Unspecified. EDMS 13:30 Patient has correct armband on for positive identification. Placed in gown. Bed in low ap3 position. Call light in reach. Side rails up X 1. Adult w/ patient. Provided Education on: fall risk education. Pulse ox on. NIBP on. 13:34 Test, Urine Sent. em1 13:34 UA Rfx Chalino Cult if indicated Sent. em1 15:16 No provider procedures requiring assistance completed. IV discontinued, intact, kb4 bleeding controlled, No redness/swelling at site. Pressure dressing applied. Administered Medications: 12:25 Drug: Diazepam IVP 5 mg IVP once Route: IVP; Site: left antecubital; kb4 13:32 Follow up: Response: No adverse reaction; Pain is decreased ap3 12:26 Drug: Ondansetron IVP 4 mg IVP once; over 2 minutes Route: IVP; Site: left antecubital; kb4 13:32 Follow up: Response: No adverse reaction; Pain is decreased ap3 12:26 Drug: morphine IVP or IV 4 mg IVP once over 4 mins Route: IVP; Infused Over: 4 mins; kb4 Site: left antecubital; 13:33 Follow up: Response: No adverse reaction; Pain is decreased; RASS: Alert and Calm (0) ap3 12:26 Drug: NS 0.9% IV 1000 ml IV at 1 bolus Per protocol; to be given as a bolus over 60 kb4 minutes Route: IV; Rate: 1 bolus; Site: left antecubital; 15:14 Follow up: Response: No adverse reaction; IV Status: Completed infusion kb4 12:26 Drug: Ketorolac IVP 15 mg IVP once Route: IVP; Site: left antecubital; kb4 13:32 Follow up: Response: No adverse reaction; Pain is decreased ap3 15:12 Drug: morphine IVP or IV 4 mg IVP once over 4 mins Route: IVP; Infused Over: 4 mins; kb4 Site: left antecubital; 15:14 Follow up: Response: Medication administered at discharge. kb4 15:12 Drug: Dexamethasone IVP 10 mg IVP once; (not to exceed 40 mg) Route: IVP; Site: left kb4 antecubital; 15:12 Follow up: Response: Medication administered at discharge. kb4 15:12 Drug: Ondansetron IVP 4 mg IVP once; over 2 minutes Route: IVP; Site: left antecubital; kb4 15:12 Follow up: Response: Medication administered at discharge. kb4 Medication: 15:24 VIS not applicable for this client. kb4 Outcome: 14:44 Discharge ordered by MD. dr5 15:16 Discharged to home ambulatory, with family, kb4 15:16 Condition: good 15:16 Discharge instructions given to patient, family, Instructed on discharge instructions, follow up and referral plans. medication usage, Demonstrated understanding of instructions, follow-up care, medications, Prescriptions given X x5 15:24 Patient left the ED. kb4 Signatures: Dispatcher [employer] Bashir Rock em1 Christina Ybarra RN RN ap3 Magi Looney Michelle, RN RN me1 Wellington Hadley, TAX ACCOUNTING MANAGER-C TAX ACCOUNTING MANAGER-[facility]5 Citlali Villanueva RN RN kb4 Radha Apple pm7
[2025-03-31 19:17] VITALS: TEMP 98.3
[2025-03-31 19:24] VITALS: O2SAT 100
[2025-03-31 19:31] VITALS: BP 115/86
== END 2025-03-31 15:24 | disposition home or self-care (01) ==
LOC: ER 11:15
DX: M54.50 Low back pain, unspecified (principal); K52.89 Other specified noninfective gastroenteritis and colitis
CPT/HCPCS: 96361; 85025; 36415; 81025; 81003; 83690; 80053; 74177; 96375; 96374; 99284; J1885; J3360; J1100; J2405 ×2; J7030